=== PATIENT | female | born 1995 | race African-American/Black ===

== ENCOUNTER 2016-06-28 19:00 | Inpatient (IN) | payer OTHER ==
[~2016-06-28] VITALS: Ht 157.5 cm; Wt 96.4 kg
[2016-06-28 19:25] VITALS: Ht 157.5 cm; Wt 96.4 kg
[2016-06-28 19:26] VITALS: BP 125/83; PULSE 98; RESP 17
[2016-06-28] MEDS ORDERED: FERR325T5 PO (19:29)
[2016-06-28] MEDS ORDERED: PNV91TAB3 PO (19:29)
[2016-06-28] MEDS ORDERED: CALC600T5 PO (19:29)
--- NOTE | 2016-06-28 20:04 | RADRPT ---
PROCEDURE: US OB. CLINICAL INDICATION: Ruptured membranes TECHNIQUE: Multiple sonographic OB images of the pelvis were obtained. The images were reviewed o n a PACS workstation. COMPARISON: No prior studies are available for comparison. FINDINGS: There is a single viable intrauterine gestation. Cardiac activity is present with 158 beats per min [place]. There is a vertex presentation. Measurements were made in order to determine age. The results are as follows: BPD =9.7 cm HC =34.5 cm AC =38.3 cm FL =8 cm. Estimated gestational age of approximately 40 weeks and 1 day. The EFW = 4371 grams. The placenta is grade III and anterior in location. There is no evidence for an abruption or placent a previa. The amniotic fluid index is 6.3 cm. There are no adnexal masses. IMPRESSION: 1. Single live intrauterine with an estimated gestational age of 40 weeks and 1 day. 2. Estimated gestational weight of 4371 grams. RPTAT: HPNM Physician Zulema Date Time Electronically viewed and signed by Physician Zulema on 06/28/2016 20:04 /
[2016-06-28 20:15] LABS: BASOPHILS % 0.3 % (0.0-2.0); EOSINOPHILS % 0.3 % (0.0-7.0); HEMATOCRIT 34.5 % (37.0-47.0); HEMOGLOBIN 11.7 g/dl (12.0-16.0); LYMPHOCYTES # 2.4 10^3/ul (0.8-2.9); LYMPHOCYTES % 17.4 % (15.0-51.0); MEAN CORPUSCULAR HEMOGLOBIN 28.9 pg (29.0-33.0); MEAN CORPUSCULAR VOLUME 85.2 fl (82.0-101.0); MEAN PLATELET VOLUME 8.2 fl (7.4-10.4); MONOCYTES % 7.1 % (0.0-11.0); NEUTROPHIL # 10.6 10^3/ul (1.6-7.5); NEUTROPHILS % 74.9 % (39.0-77.0); PLATELET COUNT 313 10^3/UL (140-440); RED BLOOD COUNT 4.05 10^6/ul (4.20-5.40); RED CELL DISTRIBUTION WIDTH 16.5 % (11.5-14.5); UNCORRECTED WBC 14.1 10^3/ul (4.8-10.8); WHITE BLOOD COUNT 14.1 10^3/ul (4.8-10.8)
[2016-06-28 20:16] LABS: CONDITION 1; LH ANALYZER COMMENTS 1
[2016-06-28] MEDS ORDERED: MISOPROSTOL 200 MCG TAB PR PRN (20:30)
[2016-06-28] MEDS ORDERED: OXYTOCIN 30 UNITS/LR 500 ML IV PRN (20:30)
[2016-06-28] MEDS ORDERED: CARBOPROST 250 MCG INJ IM PRN (20:30)
[2016-06-28] MEDS ORDERED: LIDOCAINE 1% (MPF) 30 ML INJ INJ PRN (20:30)
[2016-06-28] MEDS ORDERED: IBUPROFEN 600 MG TAB PO PRN (20:30)
[2016-06-28] MEDS ORDERED: OXYTOCIN 30 UNITS/LR 500 ML IV SCH ×3 (20:30)
[2016-06-28] MEDS ORDERED: METHYLERGONOVINE 0.2 MG INJ IM PRN (20:30)
[2016-06-28] MEDS ORDERED: LACTATED RINGER'S 1,000 ML IV PRN (20:30)
[2016-06-28] MEDS ORDERED: BUTORPHANOL 2 MG INJ IV PRN (20:30)
[2016-06-28] MEDS ORDERED: AMPICILLIN 2 GM/NS (PMX) 100 ML IV ONE (20:30)
[2016-06-28 20:33] LABS: INR 0.93; PROTIME 12.5 Sec (12.2-14.2)
[2016-06-28] MEDS: LACTATED RINGER'S 1,000 ML IV SCH ×2 (21:00→22:52)
[2016-06-28] MEDS ORDERED: FENTAnyl 2MCG/ML-ROPIV 0.2% 100 ML ONE (22:17)
[2016-06-28 23:07] LABS: ADD UMIC YES; URINE BILIRUBIN (Dip) NEGATIVE (NEGATIVE); URINE BLOOD (Dip) 1+ (NEGATIVE); URINE COLOR LT. YELLOW (YELLOW); URINE GLUCOSE (Dip) NEGATIVE (NEGATIVE); URINE KETONES (Dip) NEGATIVE (NEGATIVE); URINE LEUKOCYTE ESTERASE (Dip) TRACE (NEGATIVE); URINE NITRITE (Dip) POSITIVE (NEGATIVE); URINE TOTAL PROTEIN (Dip) NEGATIVE (NEGATIVE); URINE UROBILINOGEN (Dip) 0.2 E.U./dL (0.1-1.0)
[2016-06-28 23:22] LABS: BACTERIA,URINE RARE; BARBITURATES Negative (NEGATIVE); BENZODIAZEPINES Negative (NEGATIVE); CANNABINOIDS Negative (NEGATIVE); SQUAMOUS EPITHELIAL CELL,UR MODERATE
[2016-06-28 23:27] LABS: COCAINE Negative (NEGATIVE); OPIATES Negative (NEGATIVE)
[2016-06-29] MEDS ORDERED: HYDROmorphONE 1 MG/ML SYG IV PRN ×2 (01:30)
[2016-06-29] MEDS ORDERED: NALOXONE (0.4 MG/ML) INJ IV PRN (01:30)
[2016-06-29] MEDS ORDERED: ZOLPIDEM 5 MG TAB PO PRN (01:30)
[2016-06-29] MEDS ORDERED: ONDANSETRON 4 MG INJ IV PRN (01:30)
[2016-06-29] MEDS ORDERED: DIPHENHYDRAMINE 50 MG INJ IV PRN (01:30)
[2016-06-29] MEDS: AMPICILLIN 1 GM/NS (PMX) 50 ML IV SCH ×6 (02:46→20:52)
[2016-06-29] MEDS: LACTATED RINGER'S 1,000 ML IV SCH ×3 (06:52→22:49)
[2016-06-29] MEDS: FENTAnyl 2MCG/ML-ROPIV 0.2% 100 ML BAG EPI SCH ×2 (13:07→19:16)
--- NOTE | 2016-06-29 17:55 | HP ---
Date/Time of Note Date/Time of Note DATE: 06/29/16 TIME: 17:51 OB - History Hx of Present Free Text/Dictation admitted in labor at 41 weeks Last Menstrual Period: September 15, 2015 Estimated Due Date: Jun 21, 2016 : 1 Para: 0 Care: Good Care Ultrasounds: Normal mid trimester US Obstetrical Complications: None Medical Complications: None Past Family/Social History * Past Medical, Surgical, Family and Obstetric Histories reviewed from chart. Blood Type: O+ Rubella: immune RPR/VDRL: Negative GBS Status: Unknown HBsAG: Negative OB Admission Exam Vital Signs Vital Signs Vital Signs Date Time Temp Pulse Resp B/P Pulse Ox O2 Delivery O2 Flow Rate FiO2 06/28/16 19:26 97.9 98 17 125/83 Room Air Physical Exam HEENT: WNL Heart: Rhythm Normal Lungs: Clear, Equal Abdomen: WNL Extremities: Normal Reflexes: Normal Cervical Dilatation: 2cm Effacement: 75% Station: -3 Membranes: Intact Heart Rate: 140's Accelerations: Accelerations Present Decelerations: No Decelerations Varibility: Moderate Contractions on Admission: 6-10 Minutes Apart Date/Time Contractions Began: ? Frequency of Contractions: ? Duration: ? Intensity: Mild Last 72 hours Lab Results CBC & BMP 06/28/16 20:04 OB Assessment/Plan Reason for admission: induction of labor Other Assessment: post term EFW>4200 gm Induction Method: per Pitocin Protocol SIENNA JOYNER MD Jun 29, 2016 17:55
[2016-06-30] VITALS (11 sets, daily range): BP systolic 110–135; BP diastolic 57–80; PULSE 89–117; RESP 18–20
[2016-06-30] MEDS: AMPICILLIN 1 GM/NS (PMX) 50 ML IV SCH (01:10)
[2016-06-30] MEDS: FENTAnyl 2MCG/ML-ROPIV 0.2% 100 ML BAG EPI SCH (01:12)
[2016-06-30] MEDS ORDERED: CEFAZOLIN 2 GM/50 ML (PMX) 50 ML IVPB ONE (02:52)
[2016-06-30] MEDS ORDERED: morphine SULFATE/PF (10 MG/10 ML) INJ ONE (03:37)
[2016-06-30] MEDS ORDERED: KETOROLAC 30 MG INJ ONE (03:37)
[2016-06-30] MEDS ORDERED: LIDOCAINE 2%/EPI 30 ML INJ ONE (03:37)
[2016-06-30] MEDS ORDERED: METOCLOPRAMIDE 10 MG INJ ONE (03:37)
[2016-06-30] MEDS ORDERED: OXYTOCIN 30 UNITS/LR 500 ML IV ONE (03:37)
[2016-06-30] MEDS ORDERED: ONDANSETRON 4 MG INJ ONE (03:37)
[2016-06-30] MEDS ORDERED: ONDANSETRON 4 MG INJ IV PRN ×2 (04:00→04:30)
[2016-06-30] MEDS ORDERED: DIPHENHYDRAMINE 50 MG INJ IV PRN ×2 (04:00→04:30)
[2016-06-30] MEDS ORDERED: MEPERIDINE 25 MG INJ IV PRN (04:00)
[2016-06-30] MEDS ORDERED: HYDROmorphONE (0.2 MG/ML) 10ML SYG IV PRN ×2 (04:00)
[2016-06-30] MEDS ORDERED: METOCLOPRAMIDE 10 MG INJ IV PRN (04:00)
[2016-06-30] MEDS ORDERED: FENTAnyl 50 MCG/ML VIAL ONE (04:09)
[2016-06-30] MEDS ORDERED: NALOXONE (0.4 MG/ML) INJ IV PRN (04:30)
[2016-06-30] MEDS ORDERED: HYDROmorphONE 1 MG/ML SYG IV PRN ×3 (04:30)
--- NOTE | 2016-06-30 04:42 | QN ---
Documentation Comment patient advanced her servical dilatation to 4 cm. regardless of aggressive labor augmentation, epidural anasthesia ans adequzte contractions had no further progress until after discussion agreed to undergo C/S. Patient had good awareness of nature and complications of C/S procedure including but but limited to infection and hemorrhage. and agreed to undergo C/S SIENNA JOYNER MD Jun 30, 2016 04:42
--- NOTE | 2016-06-30 04:44 | OPR ---
Operative Report Planned Procedure Procedure date Jun 30, 2016 Procedure(s) primary C/S Performed by: SIENNA JOYNER MD Assisting provider: DIDI CERDA Anesthesiologist: BEV CAMACHO MD Pre-procedure diagnosis term gestation arrest of dilatation and decent Anesthesia Type: epidural Procedure Description Under satisfactory anaesthesia a Pfannenstiel incision was made two fingerbreadth above and parallel to the symphysis of pubis. Incision was extended laterally to the border of the Recti muscles on either sides. Incision was carried down with sharp and blunt dissection until fascia was reached. Anterior Recti muscle fascia was incised in mid portion and incision extended laterally to the border of skin incision. Fascia was mobilized from muscle superiorly and Recti muscles were from midline using sharp and blunt dissection. Peritoneum was visualized; Avoiding bowel and bladder it was incised . Incision was extended superiorly and inferiorly. Bladder blade was placed. Posterior peritoneum covering the lower segment of the uterus and lower segment of the uterus were incised. Incision was extended laterally to the border of Round Lig. on either sides and baby was delivered from OP. position . Amniotic fluid appeared clear. Cord blood was obtained and cord had 3 vessels . Placenta was delivered spontaneously and appeared intact and complete. Intrauterine cavity was rubbed with a laparotomy sponge. Uterine incision was closed in 2 layers using running stitches of No1 Monocryl. Hemostasis appeared secure. Ovaries and Fallopian tubes were within normal limits. Announcing needle, lap sponge and instrument count to be correct abdomen was closed in layers as follows: Peritoneum and Recti muscles with running stitches of 20 Vicryl. Fascia with running stitch of No 1 PDS. Subcutaneous tissue with running stitches of 20 Chromic and skin was closed using mimi. Patient tolerated the procedure well and was transferred to [facility] in good condition. Post-Procedure Post-procedure diagnosis S/P C/S Findings: Live Baby Specimen removed: No Complications: None Pt Condition post procedure: stable Disposition: PACU Physician Certification I, the undersigned physician, hereby certify that I have discussed the procedure described in this consent form with this patient (or the patient's legal inside sales representative), including: * The risk and benefits of the procedure; * Any adverse reactions that may reasonably be expected to occur; * Any alternative efficacious methods of treatment which may be medically viable ; * The potential problems that may occur during recuperation; * Potential for blood transfusion and associated risks/benefits; and * Any research or economic interest I may have regarding this treatment. I further certify that the patient/legally responsible person was encouraged to ask question and that all questions were answered. SIENNA JOYNER MD Jun 30, 2016 04:44
[2016-06-30] MEDS: HYDROmorphONE (0.2 MG/ML) 10ML SYG IV PRN ×2 (05:45→07:16)
--- NOTE | 2016-06-30 08:37 | DELSUM ---
Delivery Summary A-C Datetime Report Generated by CPN: 06/30/2016 08:36 DELIVERY PERSONNEL Flexo Press Operator: Fistell, Vasile MATERNAL INFORMATION Delivery Anesthesia: Epidural Medications in Delivery: PITOCIN 30 UNITS IN 500CC L/R INJ Estimated Blood Loss (ml): 600 Placenta Cultured: No Maternal Complications: Other Other Maternal Complications: POST DATES LABOR SUMMARY EDC: 06/21/2016 00:00 No. Babies in Womb: 1 Attempted: No Labor Anesthesia: Epidural LABOR INFORMATION Reason for Induction: Macrosomia; Oligohydramnios Onset of Labor: 06/29/2016 18:00 Oxytocin: Augmentation Group B Beta Strep: Done, Result Unknown Antibiotics # of Doses: AMPICILLIN X 8 Antibiotics Time of Last Dose: 0100 Steroids Given: None Reason Steroids Not Administered: Not Applicable MEMBRANES Membranes Rupture Method: Spontaneous Membranes Rupture Method: Spontaneous Rupture of Membranes: 06/28/2016 17:00 Length of Rupture (hr): 35.13 Amniotic Fluid Color: Clear Amniotic Fluid Color: Clear Amniotic Fluid Color: Clear Amniotic Fluid Color: Clear Amniotic Fluid Color: Clear Amniotic Fluid Color: Clear Amniotic Fluid Color: Light Meconium Amniotic Fluid Color: Light Meconium Amniotic Fluid Color: Light Meconium Amniotic Fluid Color: Heavy Meconium Amniotic Fluid Amount: Moderate Amniotic Fluid Amount: Moderate Amniotic Fluid Amount: Moderate Amniotic Fluid Amount: Moderate Amniotic Fluid Amount: Moderate Amniotic Fluid Amount: Moderate Amniotic Fluid Amount: Moderate Amniotic Fluid Amount: Moderate Amniotic Fluid Amount: Small Amniotic Fluid Odor: None Amniotic Fluid Odor: None Amniotic Fluid Odor: None Amniotic Fluid Odor: None Amniotic Fluid Odor: None Amniotic Fluid Odor: None Amniotic Fluid Odor: None STAGES OF LABOR Stage 3 hr: 0 Stage 3 min: 1 Total Time in Labor hr: 10 Total Time in Labor min: 9 CSECTION DELIVERY Primary Indication: Secondary Arreof Dilata Secondary Indication: Prolong Active Phase CSection Urgency: Non Elective CSection Incidence: Primary Labor: Labor Elective: Nonelective CSection Incision: Lower Uterine Transverse BABY A INFORMATION Infant Delivery Date/Time: 06/30/2016 04:08 Method of Delivery: Born in Route : No : N/A Forceps: N/A Vacuum Extraction: N/A Shoulder Dystocia : N/A SHOULDER DYSTOCIA BABY A Delivery Date/Time: 06/30/2016 04:08 PRESENTATION/POSITION BABY A Presentation: Cephalic Presentation: Cephalic Presentation: Cephalic Presentation: Cephalic Presentation: Cephalic Cephalic Presentation: Vertex Vertex Position: Right Occipital Anterior Breech Presentation: N/A PLACENTA INFORMATION BABY A Placenta Delivery Time : 06/30/2016 04:09 Placenta Method of Delivery: Manual Removal Placenta Status: Delivered SCORES BABY A Heart Rate 1 min: >100 bpm Resp Effort 1 min: Good Cry Reflex Irritability 1 min: Cough/Sneeze/Pulls Away Muscle Tone 1 min: Active Motion Color 1 min: Blue/Pale Resuscitation Effort 1 min: Tactile Stimulation; PPV/NCPAP SCORE 1 MIN: 8 Heart Rate 5 min: >100 bpm Resp Effort 5 min: Good Cry Reflex Irritability 5 min: Cough/Sneeze/Pulls Away Muscle Tone 5 min: Active Motion Color 5 min: Blue/Pale Resuscitation Effort 5 min: Oxygen; PPV/NCPAP SCORE 5 MIN: 8 Heart Rate 10 min: >100 bpm Resp Effort 10 min: Good Cry Reflex Irritability 10 min: Cough/Sneeze/Pulls Away Muscle Tone 10 min: Active Motion Color 10 min: Body [place], Extremit Blue Resuscitation Effort 10 min: N/A SCORE 10 MIN: 9 INFANT INFORMATION BABY A Gestational Age at Delivery: 41.2 Gestational Status: Late Term- 41- 41.6 Weeks Outcome : Liveborn Condition : Stable Infant Sex: Male IDENTIFICATION/MEDS BABY A ID Band Number: [id number] ID Band Location: Right Leg; Left Arm Sensor Applied: Yes Sensor Number: [id number] Sensor Location : Cord Clamp Vitamin K Given : Not Given Erythromycin Given: Not Given WEIGHT/LENGTH BABY A Birthweight (gm): 4080 Weight (lb): 9 Infant Weight (oz): 0 Infant Length (in): 20.50 Infant Length (cm): 52.07 CORD INFORMATION BABY A No. Cord Vessels: 3 Nuchal Cord : N/A Cord Blood Taken: Yes Suction: Mouth; Nose ASSESSMENT BABY A Complications: Other Physical Findings at Delivery: Other Respirations: Appears Normal Oracle Bpm Developer/ALS Called : Yes Infant Care By: Renetta JONES/SCOT SCHAEFER Transferred To: Remains with Mother
[2016-06-30 10:33] LABS: HEMATOCRIT 26.3 % (37.0-47.0); HEMOGLOBIN 8.8 g/dl (12.0-16.0)
[2016-06-30] MEDS ORDERED: NA PHOSPHATE/BIPHOS 133 ML ENEMA PR PRN (13:00)
[2016-06-30] MEDS: SENNA/DOCUSATE NA (8.6MG/50MG) TAB PO SCH (13:00)
[2016-06-30] MEDS ORDERED: OXYTOCIN 30 UNITS/LR 500 ML IV PRN (13:00)
[2016-06-30] MEDS ORDERED: CARBOPROST 250 MCG INJ IM PRN (13:00)
[2016-06-30] MEDS ORDERED: METHYLERGONOVINE 0.2 MG INJ IM PRN (13:00)
[2016-06-30] MEDS ORDERED: MISOPROSTOL 200 MCG TAB PR PRN (13:00)
[2016-06-30] MEDS ORDERED: LANOLIN 7 GM TUBE TOP PRN (13:00)
[2016-06-30] MEDS: CEFAZOLIN 2 GM/50 ML (PMX) 50 ML IV SCH ×2 (13:13→20:22)
[2016-06-30] MEDS: LACTATED RINGER'S 1,000 ML IV SCH ×2 (13:13→20:47)
[2016-06-30 13:27] LABS: RUBELLA ANTIBODY - IGG 2.65
[2016-06-30] MEDS ORDERED: BISACODYL 10 MG SUPP PR ONE (16:30)
[2016-06-30] MEDS: CLINDAMYCIN 300 MG CAP PO SCH (19:25)
[2016-06-30] MEDS: KETOROLAC 30 MG INJ IV PRN (20:22)
[2016-07-01] VITALS: BP 118/60; PULSE 115; RESP 18
[2016-07-01] MEDS: KETOROLAC 30 MG INJ IV PRN (03:29)
[2016-07-01 04:00] VITALS: BP 121/54; PULSE 111; RESP 18
[2016-07-01] MEDS ORDERED: ACETAMINOPHEN/CODEINE #3 TAB PO PRN (04:30)
[2016-07-01] MEDS: OXYCODONE/ACETAMINOPHEN (5/325) TAB PO PRN ×3 (04:32→18:21)
[2016-07-01] MEDS: CEFAZOLIN 2 GM/50 ML (PMX) 50 ML IV SCH (04:32)
[2016-07-01] MEDS: CLINDAMYCIN 300 MG CAP PO SCH ×5 (05:28→23:37)
[2016-07-01 07:37] LABS: BASOPHILS % 0.3 % (0.0-2.0); EOSINOPHILS % 0.2 % (0.0-7.0); HEMOGLOBIN 7.9 g/dl (12.0-16.0); LYMPHOCYTES # 2.3 10^3/ul (0.8-2.9); MEAN CORPUSCULAR HEMOGLOBIN 29.7 pg (29.0-33.0); MEAN CORPUSCULAR HGB CONC 34.4 g/dl (32.0-37.0); MEAN CORPUSCULAR VOLUME 86.6 fl (82.0-101.0); MEAN PLATELET VOLUME 7.9 fl (7.4-10.4); MONOCYTE # 1.3 10^3/ul (0.3-0.9); MONOCYTES % 7.9 % (0.0-11.0); NEUTROPHIL # 12.6 10^3/ul (1.6-7.5); NEUTROPHILS % 77.6 % (39.0-77.0); PLATELET COUNT 227 10^3/UL (140-440); RED BLOOD COUNT 2.65 10^6/ul (4.20-5.40); RED CELL DISTRIBUTION WIDTH 16.6 % (11.5-14.5); UNCORRECTED WBC 16.2 10^3/ul (4.8-10.8); WHITE BLOOD COUNT 16.2 10^3/ul (4.8-10.8)
[2016-07-01 07:46] LABS: CONDITION 1; LH ANALYZER COMMENTS 1
[2016-07-01 08:00] VITALS: BP 106/53; PULSE 104; RESP 20
[2016-07-01] MEDS: SENNA/DOCUSATE NA (8.6MG/50MG) TAB PO SCH ×3 (09:00→21:43)
[2016-07-01] MEDS: IBUPROFEN 800 MG TAB PO SCH ×3 (09:30→21:43)
[2016-07-01 13:00] VITALS: BP 110/58; PULSE 89; RESP 19
--- NOTE | 2016-07-01 13:50 | PN ---
Date/Time of Note Date/Time of Note DATE: 07/01/16 TIME: 13:47 Assessment/Plan VTE Prophylaxis VTE Prophylaxis Intervention: ambulation Lines/Catheters IV Catheter Type (from Nrsg): Peripheral IV Assessment/Plan Assessment/Plan S/P C/S POD # 1 Anemia: possibly due to PP hemorrhage will advance diet and ambulate repeat CBC next day start on FeSO4 and PNV Subjective 24 Hr Interval Summary Passing flatus No BM Constitutional: BM, ambulates, flatus, improved, no complaints, urine output Pain Control: well controlled Exam/Review of Systems Vital Signs Vitals Vital Signs Date Time Temp Pulse Resp B/P Pulse Ox O2 Delivery O2 Flow Rate FiO2 07/01/16 08:00 98.0 104 20 106/53 Room Air 06/30/16 11:00 100 Intake and Output 06/30/16 06/30/16 07/01/16 15:00 23:00 07:00 Intake Total 600 ml 825 ml 625 ml Output Total 1100 ml 2600 ml 1100 ml Balance -500 ml -1775 ml -475 ml Exam Free Text/Dictation abdomen: soft BS + Incision: covered Constitutional: alert, oriented, well developed Psych: nl mood/affect, no complaints Head: atraumatic, normocephalic Eyes: EOMI, nl conjunctiva, nl lids, nl sclera ENMT: mucosa pink and moist, nl external ears & nose, nl lips & teeth, nl nasal mucosa & septum Neck: non-tender, supple Respiratory: clear to auscultation, normal air movement Cardiovascular: nl pulses, regular rate and rhythm Gastrointestinal: nl liver, spleen, non-tender, soft Musculoskeletal: nl extremities to inspection, nl gait and stance Extremities: normal pulses Neurological: GUM DIPPER II-XII intact, nl mental status, nl speech, nl strength Skin: nl turgor, rash or lesions Lymph: nl lymph nodes Results Result Diagram: 07/01/16 0647 SIENNA JOYNER MD Jul 01, 2016 13:50
[2016-07-01] MEDS ORDERED: MULTIVIT/MIN/FOLATE/IRON/PREN TAB PO ONE (14:00)
[2016-07-01 17:03] VITALS: BP 108/58; PULSE 91; RESP 20
[2016-07-01 20:15] VITALS: BP 123/67; PULSE 118; RESP 18
[2016-07-02 04:15] VITALS: BP 116/72; PULSE 93; RESP 18
[2016-07-02] MEDS: LACTATED RINGER'S 1,000 ML IV SCH ×3 (04:47→20:47)
[2016-07-02] MEDS: OXYCODONE/ACETAMINOPHEN (5/325) TAB PO PRN ×2 (04:54→16:23)
[2016-07-02] MEDS: CLINDAMYCIN 300 MG CAP PO SCH ×4 (05:58→23:58)
[2016-07-02] MEDS: IBUPROFEN 800 MG TAB PO SCH ×3 (05:58→21:36)
[2016-07-02 08:00] VITALS: BP 128/73; PULSE 100; RESP 16
[2016-07-02 08:33] LABS: BASOPHILS % 0.3 % (0.0-2.0); EOSINOPHILS # 0.1 10^3/ul (0.0-0.5); EOSINOPHILS % 0.7 % (0.0-7.0); HEMATOCRIT 22.2 % (37.0-47.0); HEMOGLOBIN 7.4 g/dl (12.0-16.0); LYMPHOCYTES # 2.1 10^3/ul (0.8-2.9); LYMPHOCYTES % 15.6 % (15.0-51.0); MEAN CORPUSCULAR HEMOGLOBIN 29.1 pg (29.0-33.0); MEAN CORPUSCULAR HGB CONC 33.6 g/dl (32.0-37.0); MEAN CORPUSCULAR VOLUME 86.6 fl (82.0-101.0); MEAN PLATELET VOLUME 7.3 fl (7.4-10.4); MONOCYTE # 0.8 10^3/ul (0.3-0.9); MONOCYTES % 6.2 % (0.0-11.0); NEUTROPHIL # 10.4 10^3/ul (1.6-7.5); NEUTROPHILS % 77.2 % (39.0-77.0); PLATELET COUNT 260 10^3/UL (140-440); RED BLOOD COUNT 2.56 10^6/ul (4.20-5.40); RED CELL DISTRIBUTION WIDTH 16.5 % (11.5-14.5); UNCORRECTED WBC 13.4 10^3/ul (4.8-10.8); WHITE BLOOD COUNT 13.4 10^3/ul (4.8-10.8)
[2016-07-02 08:36] LABS: CONDITION 1; LH ANALYZER COMMENTS 1
[2016-07-02] MEDS: FERROUS SULFATE (EC) 325 MG TAB PO SCH (10:01)
[2016-07-02] MEDS: SENNA/DOCUSATE NA (8.6MG/50MG) TAB PO SCH ×2 (10:01→21:36)
[2016-07-02 16:30] VITALS: BP 121/82; PULSE 99; RESP 16
--- NOTE | 2016-07-02 18:31 | DS ---
Date/Time of Note Date/Time of Note home next day DATE: 07/02/16 TIME: 18:30 Obstetrical Discharge Record Final Diagnosis Final Diagnosis: Term delivered Other Final Diagnosis S/P C/S Section Section: Primary Primary Indication arrest of dilatation and decent Complications Augmentation: Yes Condition on Discharge Physical Assessment Last Vitals: see nurses notes Voiding: Yes Bowel Movement: Yes Breast: Soft, non-tender, Filling Fundus: Firm Abdomen and Incision: soft BS + Incision: covered Episiotomy: NA Calf Tenderness: No Patient Condition: Good SIENNA JOYNER MD Jul 02, 2016 18:31
--- NOTE | 2016-07-02 18:34 | DS ---
Date/Time of Note Date/Time of Note home next day DATE: 07/02/16 TIME: 18:31 Discharge Summary Admission/Discharge Info Admit Date/Time Jun 28, 2016 at 20:20 Discharge Date/Time 07/03/2015 Final Diagnosis S/P C/S Patient Condition: Good Procedures primary C/S Hx of Present Illness 21 y/o female had primary C/S because of arrest of dilatation and decent Hospital Course uncomplicated Home Meds Reported Medications Calcium Carbonate (CALCIUM) 600 Mg Tablet, 600 MG PO, TAB 06/28/16 Ferrous Sulfate (Ferrous Sulfate) 325 Mg Tablet.dr, 325 MG PO 06/28/16 Pnv95/Ferrous Fumarate/FA ( [place]) 1 Each Tablet, 1 EACH PO, TAB 06/28/16 Follow-up Plan 2 -3 days for staple removal Pending Labs Laboratory Tests Test 07/02/16 07:51 Basophils # 0.010^3/ul (0.0-0.1) Basophils % 0.3% (0.0-2.0) Blood Morphology Comment Eosinophils # 0.110^3/ul (0.0-0.5) Eosinophils % 0.7% (0.0-7.0) Hematocrit 22.2% (37.0-47.0) Hemoglobin 7.4g/dl (12.0-16.0) Lymphocytes # 2.110^3/ul (0.8-2.9) Lymphocytes % 15.6% (15.0-51.0) Mean Corpuscular Hemoglobin 29.1pg (29.0-33.0) Mean Corpuscular Hemoglobin Concent 33.6g/dl (32.0-37.0) Mean Corpuscular Volume 86.6fl (82.0-101.0) Mean Platelet Volume 7.3fl (7.4-10.4) Monocytes # 0.810^3/ul (0.3-0.9) Monocytes % 6.2% (0.0-11.0) Neutrophils # 10.410^3/ul (1.6-7.5) Neutrophils % 77.2% (39.0-77.0) Nucleated Red Blood Cells # 0.010^3/ul (0.0-0.0) Nucleated Red Blood Cells % 0.0/100WBC (0.0-0.0) Platelet Count 94830^3/UL (140-440) Red Blood Count 2.5610^6/ul (4.20-5.40) Red Cell Distribution Width 16.5% (11.5-14.5) White Blood Count 13.410^3/ul (4.8-10.8) SIENNA JOYNER MD Jul 02, 2016 18:34
[2016-07-02 19:45] VITALS: BP 132/78; PULSE 114; RESP 18
[2016-07-03 04:30] VITALS: BP 134/81; PULSE 94; RESP 18
[2016-07-03] MEDS: LACTATED RINGER'S 1,000 ML IV SCH (04:47)
[2016-07-03] MEDS: CLINDAMYCIN 300 MG CAP PO SCH ×3 (05:42→18:22)
[2016-07-03] MEDS: IBUPROFEN 800 MG TAB PO SCH ×2 (05:42→14:00)
[2016-07-03 08:15] VITALS: BP 120/88; PULSE 100; RESP 17
[2016-07-03 08:34] LABS: BASOPHILS % 0.2 % (0.0-2.0); EOSINOPHILS # 0.1 10^3/ul (0.0-0.5); EOSINOPHILS % 0.6 % (0.0-7.0); HEMATOCRIT 22.8 % (37.0-47.0); HEMOGLOBIN 7.7 g/dl (12.0-16.0); LYMPHOCYTES # 2.8 10^3/ul (0.8-2.9); LYMPHOCYTES % 20.4 % (15.0-51.0); MEAN CORPUSCULAR HEMOGLOBIN 29.1 pg (29.0-33.0); MEAN CORPUSCULAR HGB CONC 33.6 g/dl (32.0-37.0); MEAN CORPUSCULAR VOLUME 86.6 fl (82.0-101.0); MEAN PLATELET VOLUME 7.5 fl (7.4-10.4); MONOCYTE # 0.9 10^3/ul (0.3-0.9); MONOCYTES % 6.3 % (0.0-11.0); NEUTROPHIL # 9.8 10^3/ul (1.6-7.5); NEUTROPHILS % 72.5 % (39.0-77.0); PLATELET COUNT 340 10^3/UL (140-440); RED BLOOD COUNT 2.63 10^6/ul (4.20-5.40); RED CELL DISTRIBUTION WIDTH 16.9 % (11.5-14.5); UNCORRECTED WBC 13.5 10^3/ul (4.8-10.8); WHITE BLOOD COUNT 13.5 10^3/ul (4.8-10.8)
[2016-07-03] MEDS ORDERED: MEASLES,MUMPS,RUBELLA VACCINE INJ SC* ONE (09:00)
[2016-07-03] MEDS ORDERED: DIPHTH/TET/ACEL PERTUSS (ADULT) 0.5 ML VIAL IM* ONE (09:00)
[2016-07-03] MEDS: FERROUS SULFATE (EC) 325 MG TAB PO SCH (09:03)
[2016-07-03] MEDS: SENNA/DOCUSATE NA (8.6MG/50MG) TAB PO SCH (09:03)
[2016-07-03 09:04] LABS: CONDITION 1; LH ANALYZER COMMENTS 1
[2016-07-03] MEDS: OXYCODONE/ACETAMINOPHEN (5/325) TAB PO PRN (12:51)
[2016-07-03 15:55] VITALS: BP 120/72; PULSE 100; RESP 19
--- NOTE | 2016-07-03 18:01 | PD.PPDC ---
PAID INTERN Discharge Instruction Provider Information Physician Information 21 y/o female had vaginal delivery Diagnosis Final Diagnosis: S/P Vaginal delivery Condition Patient Condition: Good Diet Diet: Resume Regular Diet Activity/Restrictions Activity: September Shower Restrictions: No Exercising No Lifting Nothing in the Vagina Return to Work or School: Aug 31, 2016 Follow-up Follow-up with Physician: 4, Day/Days (in clinic for staple removal ) Return to clinic for SERVICE ARCHITECT Instructions: Fever greater than 101 Chills OB Instructions: Breast Tenderness Depression Surgical Instructions: Incisional Drainage Incisional Redness SIENNA JOYNER MD Jul 03, 2016 18:01
[2016-07-03] MEDS ORDERED: IBUP800T25 PO (18:02)
[2016-07-03] MEDS ORDERED: Oxycodone/Acetamin (5/325) PO (18:02)
== END 2016-07-03 20:30 | disposition home or self-care (01) | DRG 766 ==
LOC: L-D 19:00 → OBT 19:00 → PIC 19:02 → OBT 20:20 → L-D 20:20 → PP1 06-30 11:35
PROVIDERS: ADMIT Obstetrics & Gynecology; ATTEND Obstetrics & Gynecology
PROC: 10D00Z1 Extraction of Products of Conception, Low, Open Approach (ICD-10-PCS; principal; 2016-06-30 04:15)
PROC: 3E00X4Z Introduction of Serum, Toxoid and Vaccine into Skin and Mucous Membranes, External Approach (ICD-10-PCS; 2016-07-03)
DX: O48.0 Post-term pregnancy (principal); O99.02 Anemia complicating childbirth; Z3A.41 41 weeks gestation of pregnancy; O62.1 Secondary uterine inertia; Z23 Encounter for immunization; Z37.0 Single live birth
CPT/HCPCS: 62319; 76815; 80307; 81001; 81003; 84112; 85014; 85018; 85025; 85610; 85730; 86592; 86703; 86762; 86900; 86901; 87340; 90715; 99464; G0463; J0290; J0690; J1170; J1885; J2274; J2405; J2590; J2765; J3010; J7120